=== PATIENT | male | born 1990 | race Caucasian/White ===

== ENCOUNTER 2023-08-16 19:08 | Emergency (ER) | payer BC ==
[2023-08-16] MEDS: Acetaminophen 500 MG Tab PO STA (19:50)
[2023-08-16] MEDS: oxyCODONE 5 MG Tab PO STA (19:50)
[2023-08-16] MEDS: Ibuprofen 800 MG Tab PO STA (19:50)
== END 2023-08-16 21:10 | disposition home or self-care (01) ==
LOC: MW.ED 19:08
DX: S82.831A Other fracture of upper and lower end of right fibula, initial encounter for closed fracture (principal); X50.0XXA Overexertion from strenuous movement or load, initial encounter
CPT/HCPCS: 29515; 73610; 73630; 99283; A9270